=== PATIENT | female | born 1955 | race African-American/Black ===

== ENCOUNTER 2023-08-01 23:05 | Emergency (ER) | payer MEDICARE, OTHER ==
[~2023-08-01] VITALS: Ht 160 cm; Wt 60.0 kg
[2023-08-01 23:09] VITALS: BP 171/63; PULSE 84; RESP 18; TEMP 98.1; O2SAT 98
[2023-08-02] MEDS ORDERED: TERB30CR8 TP (00:30)
== END 2023-08-02 02:44 | disposition home or self-care (01) ==
LOC: ER 08-02 00:19
DX: B35.3 Tinea pedis (principal); M79.671 Pain in right foot; J45.909 Unspecified asthma, uncomplicated; I10 Essential (primary) hypertension; Z90.49 Acquired absence of other specified parts of digestive tract
CPT/HCPCS: 73630; 99283